=== PATIENT | male | born 1960 | race African-American/Black ===

== ENCOUNTER 2019-10-25 15:21 | Observation (INO) ==
[2019-10-25] MEDS ORDERED: ceFAZolin 1,000 MG in SYRINGE 1 EACH IV ONE (17:15)
[2019-10-25 17:19] LABS: Basophils % 0.4 % (0.0-0.8); Eosinophils # 0.2 10*3/uL (0.0-0.87); Eosinophils % 2.2 % (0.00-10.9); Hematocrit 43.6 VOL% (42.0-52.0); Hemoglobin 14.4 GM/DL (14.0-18.0); Immature Granulocytes % 0.5 %; Immature Granulocytes Absolute 0.04 #; Lymphocytes # 2.3 10*3/uL (1.4-4.0); Lymphocytes % 28.3 % (21.2-54.2); Mean Corpuscular Volume 89.5 FL (87-102); Mean Platelet Volume 10.8 FL (9.6-12.0); Monocytes % 11.2 % (1.7-12.7); Neutrophils % 57.4 % (38.7-73.9); Platelet Count 226 T/CUMM (130-400); Red Blood Count 4.87 MC/CUMM (3.8-5.5); Red Cell Distribution Width 12.2 % (9.3-17.3)
[2019-10-25 17:47] LABS: Lymphocytes 30 % (20-55); Segmented Neutrophils 60 % (50-85); Total Cells Counted 100
[2019-10-25 17:48] LABS: Platelet Estimate Normal
[2019-10-25 17:49] LABS: Albumin 3.1 G/DL (3.4-5.0); Bilirubin,Total 0.6 MG/DL (0.2-1.0); Calcium 9.2 MG/DL (8.5-10.1); Total Protein 7.8 G/DL (6.4-8.3)
[2019-10-25] MEDS ORDERED: ceFAZolin 1,000 MG VIAL ONE (19:48)
[2019-10-25] MEDS ORDERED: ACETAMINOPHEN 325 MG TABLET PO PRN (20:14)
[2019-10-25] MEDS ORDERED: ONDANSETRON 4 MG/2 ML VIAL IV PRN (20:14)
[2019-10-25] MEDS: PIPERACILLIN/TAZOBACTAM 3,375 MG in SODIUM CHLORIDE 0.9% 100 ML IV SCH (21:37)
[2019-10-26] MEDS: VANCOMYCIN INJ 1,750 MG in SODIUM CHLORIDE 0.9% 500 ML IV SCH ×2 (04:09→14:39)
[2019-10-26 06:44] LABS: Basophils % 0.5 % (0.0-0.8); Eosinophils # 0.2 10*3/uL (0.0-0.87); Hemoglobin 14.9 GM/DL (14.0-18.0); Immature Granulocytes % 0.8 %; Immature Granulocytes Absolute 0.07 #; Lymphocytes # 3.3 10*3/uL (1.4-4.0); Lymphocytes % 38.1 % (21.2-54.2); Mean Corpuscular HGB Conc 33.1 GM/DL (32-36); Mean Corpuscular Volume 87.9 FL (87-102); Mean Platelet Volume 10.6 FL (9.6-12.0); Monocytes % 8.4 % (1.7-12.7); Neutrophils % 50.2 % (38.7-73.9); Platelet Count 254 T/CUMM (130-400); Red Blood Count 5.12 MC/CUMM (3.8-5.5); Red Cell Distribution Width 12.2 % (9.3-17.3); White Blood Count 8.6 T/CUMM (4-12)
[2019-10-26] MEDS ORDERED: BUPIVACAINE MPF 0.25% 30 ML VIAL ONE (06:46)
[2019-10-26] MEDS ORDERED: LIDOCAINE 1%/EPI INJ 20 ML VIAL ONE (06:46)
[2019-10-26 07:14] LABS: Hypochromasia 1+; Microcytosis 1+
[2019-10-26 07:15] LABS: Platelet Estimate Normal
[2019-10-26] MEDS ORDERED: ceFAZolin 1,000 MG VIAL ONE (09:02)
[2019-10-26] MEDS ORDERED: SUGAMMADEX 200 MG/2 ML VIAL IV ONE (09:13)
[2019-10-26] MEDS ORDERED: DESFLURANE 1 UNIT/15 MINUTE INH ONE (09:33)
[2019-10-26] MEDS ORDERED: MIDAZOLAM 2 MG/2 ML VIAL ONE (09:33)
[2019-10-26] MEDS ORDERED: propofoL 200 MG/20 ML VIAL IV ONE (09:33)
[2019-10-26] MEDS ORDERED: fentaNYL 100 MCG/2 ML VIAL ONE (09:33)
[2019-10-26] MEDS ORDERED: LIDOCAINE 2% 5 ML VIAL ONE (09:33)
[2019-10-26] MEDS ORDERED: SUCCINYLCHOLINE 200 MG/10 ML VIAL ONE (09:34)
[2019-10-26] MEDS ORDERED: KETOROLAC 30 MG/1 ML VIAL ONE (09:34)
[2019-10-26] MEDS ORDERED: ROCURONIUM 100 MG/10 ML VIAL IV ONE (09:34)
[2019-10-26] MEDS: PIPERACILLIN/TAZOBACTAM 3,375 MG in SODIUM CHLORIDE 0.9% 100 ML IV SCH ×2 (10:33→18:10)
[2019-10-26] MEDS: PANTOPRAZOLE 40 MG TABLET PO SCH (10:34)
[2019-10-26] MEDS: ENOXAPARIN 40 MG/0.4 ML SYRINGE SUBCUT SCH (20:52)
[2019-10-26] MEDS: HYDROmorphone 2 MG/1 ML VIAL IV PRN (20:52)
[2019-10-27] MEDS: PIPERACILLIN/TAZOBACTAM 3,375 MG in SODIUM CHLORIDE 0.9% 100 ML IV SCH ×3 (01:48→18:01)
[2019-10-27] MEDS: VANCOMYCIN INJ 1,750 MG in SODIUM CHLORIDE 0.9% 500 ML IV SCH ×2 (05:20→15:38)
[2019-10-27] MEDS: HYDROmorphone 2 MG/1 ML VIAL IV PRN (08:13)
[2019-10-27] MEDS: PANTOPRAZOLE 40 MG TABLET PO SCH (08:14)
[2019-10-27] MEDS: ENOXAPARIN 40 MG/0.4 ML SYRINGE SUBCUT SCH (21:19)
[2019-10-28] MEDS: PIPERACILLIN/TAZOBACTAM 3,375 MG in SODIUM CHLORIDE 0.9% 100 ML IV SCH ×2 (01:01→08:44)
[2019-10-28] MEDS: VANCOMYCIN INJ 1,750 MG in SODIUM CHLORIDE 0.9% 500 ML IV SCH (05:37)
[2019-10-28] MEDS: PANTOPRAZOLE 40 MG TABLET PO SCH (08:41)
[2019-10-28 12:08] VITALS: BP 148/92
== END 2019-10-28 12:44 | disposition home or self-care (01) ==
LOC: N.ED 15:21 → N.EDINP 15:21 → N.5E 20:14
PROVIDERS: ADMIT Student in an Organized Health Care Education/Training Program; ATTEND Student in an Organized Health Care Education/Training Program